=== PATIENT | female | born 1975 | race African-American/Black ===

== ENCOUNTER 2018-01-11 07:42 | Day surgery (SDC) | payer BC ==
[2018-01-11] MEDS ORDERED: Sodium Chloride 0.9% 20 ML ONE (08:18)
[2018-01-11] MEDS ORDERED: Cosyntropin 250 MCG VIAL SLOW IVP SCH (08:30)
[2018-01-11 09:46] VITALS: BP 114/71; TEMP 98
== END 2018-01-11 10:40 | disposition home or self-care (01) ==
LOC: ONC/OP 07:42
PROVIDERS: ATTEND Internal Medicine Rheumatology
DX: E27.40 Unspecified adrenocortical insufficiency (principal); Z79.899 Other long term (current) drug therapy
CPT/HCPCS: 36415; 80400; 82024; 96374; A4216; J0834

== ENCOUNTER 2018-04-09 13:57 | Outpatient (CLI) | payer BC ==
[2018-04-09] MEDS ORDERED: Gadobenate Dimeglumine 529 MG/1 ML (20ML VIAL) ONE (15:10)
--- NOTE | 2018-04-09 16:49 | MRI ---
MRI BRAIN WITH AND WITHOUT CONTRAST: 04/09/2018 HISTORY: Secondary adrenal insufficiency. Fatigue. Memory loss. Headaches. COMPARISON: None. TECHNIQUE: Multiplanar, multisequence MR imaging of the brain obtained with and without contrast using a pituita ry mass protocol. FINDINGS: The diffusion weighted imaging demonstrates no evidence for acute infarction. Regional bone marrow s ignal intensity within normal limits. No midline shift, mass effect, or ventricular enlargement. No sellar or suprasellar mass identified. The pituitary stalk appears normal in location, size, and enhancement. The pituitary gland measures 5 mm in craniocaudal dimension, lower limits of normal. The suprasellar cistern is moderately promin ent with mild mass effect on the superior aspect of the anterior lobe of the pituitary gland. Whole brain post contrast imaging appears unremarkable. IMPRESSION: No pituitary mass noted. Please see above discussion. POS: [facility]
== END 2018-04-09 13:58 | disposition home or self-care (01) ==
LOC: BICMRI 13:57
PROVIDERS: ATTEND Family Medicine
DX: E27.49 Other adrenocortical insufficiency (principal)
CPT/HCPCS: 70553; A9579

== ENCOUNTER 2019-03-11 09:09 | Outpatient (CLI) | payer OTHER ==
--- NOTE | 2019-03-11 10:34 | MMO ---
Bilateral MAMMO Bilat Diag DDI+EMELY. CLINICAL HISTORY: Patient is 43 years old and is seen for diagnostic exam,lump or thickening in the lower-outer region of the left breast and pain in the lower-outer region of the left breast. The patient has no family history of breast cancer. The patient has no personal history of cancer. The patient has a history of left cyst aspiration in 2013 - benign. VIEWS: The views performed were: bilateral craniocaudal with tomosynthesis; bilateral mediolateral oblique with tomosynthesis; and bilateral mediolateral with tomosynthesis. FILMS COMPARED: The present examination has been compared to prior imaging studies performed at [facility] on 03/11/2019, and at [facility] on 01/16/2013. This study has been interpreted with the assistance of computer-aided detection. MAMMOGRAM FINDINGS: The breasts are heterogeneously dense, which could obscure a lesion on mammography. US shows cyst at 12:00 and 3:00 positions. There are no suspicious masses, suspicious calcifications, or new areas of architectural distortion. IMPRESSION: THERE IS NO MAMMOGRAPHIC EVIDENCE OF MALIGNANCY. A ROUTINE FOLLOW-UP MAMMOGRAM IN 1 YEAR IS RECOMMENDED. THE RESULTS OF THIS EXAM WERE SENT TO THE PATIENT. ACR BI-RADS Category 2 - Benign finding MAMMOGRAPHY NOTE: 1. A negative mammogram report should not delay a biopsy if a dominant of clinically suspicious mass is present. 2. Approximately 10% to 15% of breast cancers are not detected by mammography. 3. Adenosis and dense breasts may obscure an underlying neoplasm. Reported by: ALEX GERARD MD Electonically Signed: [id number]
--- NOTE | 2019-03-11 12:05 | ULT ---
LEFT BREAST ULTRASOUND: Date: 03/11/19 HISTORY: Palpable abnormalities in the left breast. FINDINGS: Correlation is made with mammogram from same date. Sonographic evaluation of the region of palpable concern at the 3 o'clock position of the left breast demonstrates a 7 mm cyst located 3 cm from the nipple. There is also a 7 mm cyst at the 12 o'clock p osition of the left breast, 1 cm from the nipple. IMPRESSION: BI-RADS Category 2 - Benign findings. Return to annual mammographic screening. POS: OFF
== END 2019-03-11 09:10 | disposition home or self-care (01) ==
LOC: BICMAMMO 09:09
PROVIDERS: ATTEND Internal Medicine
DX: N63.23 Unspecified lump in the left breast, lower outer quadrant (principal)
CPT/HCPCS: 77066; G0279

== ENCOUNTER 2019-06-29 10:50 | Emergency (ER) | payer OTHER ==
[2019-06-29] MEDS ORDERED: Proparacaine 0.5% Opth 15 ML BOT ONE (11:32)
[2019-06-29] MEDS ORDERED: Fluorescein Opthalmic Strip ONE (11:32)
[2019-06-29] MEDS ORDERED: Tetracaine HCl 0.5% Ophth Soln 15 ML Bottle OP SCH (12:15)
== END 2019-06-29 13:27 | disposition home or self-care (01) ==
LOC: ERS 10:50
DX: S05.01XA Injury of conjunctiva and corneal abrasion without foreign body, right eye, initial encounter (principal); F32.9 Major depressive disorder, single episode, unspecified; F41.9 Anxiety disorder, unspecified; F43.10 Post-traumatic stress disorder, unspecified; M06.9 Rheumatoid arthritis, unspecified; X58.XXXA Exposure to other specified factors, initial encounter
CPT/HCPCS: 99283

== ENCOUNTER 2019-08-15 10:01 | Outpatient (CLI) | payer OTHER ==
--- NOTE | 2019-08-15 11:23 | ULT ---
US Pelvic Transvag W Doppler History: Abnormal Pap smear Comparison: None. Findings: Real-time grayscale, color, and spectral analysis of the pelvis was performed transabdomina l and transvaginal approach. The uterus measures 8.6 x 5.8 x 4.2 cm. Endometrial thickness is 9 mm. No myometrial mass. Both ovaries are normal with adequate vascular flow. 2 cm left ovarian cyst. No free fluid in the pelvis. Impression: Normal pelvic ultrasound.
== END 2019-08-15 10:02 | disposition home or self-care (01) ==
LOC: BICULT 10:01
PROVIDERS: ATTEND Nurse Practitioner
DX: N93.9 Abnormal uterine and vaginal bleeding, unspecified (principal)
CPT/HCPCS: 76856